=== PATIENT | male | born 1935 | race Caucasian/White ===

== ENCOUNTER → 2018-03-02 | Outpatient (CLI) | payer OTHER ==
[~2018-03-02] MED LIST: NOHOMEMEDICATIONS; NOLVADEX 10MG T10 M1 PO; PREVAGEN; TOBRAMYCIN SULFA5 ML OP
== END ==
LOC: M.ULTRA 09:57
DX: N62 Hypertrophy of breast (principal); Z90.49 Acquired absence of other specified parts of digestive tract

== ENCOUNTER → 2018-03-17 | Outpatient (CLI) | payer OTHER ==
[~2018-03-17] MED LIST changes: -NOLVADEX 10MG T10 M1 PO; -PREVAGEN
[2018-03-17 14:01] LABS: CREATININE 1.1 mg/dL (0.6-1.3)
== END ==
LOC: M.LAB 13:18 → M.MRI 14:30
PROVIDERS: Registered Nurse Diabetes Educator
DX: N64.4 Mastodynia (principal)

== ENCOUNTER 2018-05-05 16:52 | Inpatient (IN) | payer OTHER ==
[~2018-05-05] VITALS: Ht 172.7 cm; Wt 70.7 kg
--- NOTE | ~2018-05-05 | H ---
[address] [address] HISTORY AND PHYSICAL Name: DEVIN PÉREZ Room: [address] [place] .R.#: [id number] Admission: 05/05/18 Attend Phys: Justin Roberts MD Discharge: 05/05/18 Date of : 31 Report #: [id number] THIS REPORT FOR: //name// Patient was here less than 24 hour please refer to the final summation note. Patient Left AMA. By: 1401Medical Records Staff OSMEL /ANN-MARIE
[2018-05-05 17:05] VITALS: BP 141/75
[2018-05-05] MEDS ORDERED: PREVAGEN (17:11)
[2018-05-05] MEDS ORDERED: NOLVADEX 10MG T10 M1 PO (17:11)
[2018-05-05 18:13] LABS: CALCIUM 9.8 mg/dL (8.5-10.1); POTASSIUM 4.7 mmol/L (3.5-5.1)
[2018-05-05 18:14] LABS: ABSOLUTE EOSINOPHILS 0.1 thou/uL (0.0-0.7); ABSOLUTE LYMPHOCYTES 1.9 thou/uL (0.8-5.3); ABSOLUTE MONOCYTES 0.7 thou/uL (0.0-1.2); ABSOLUTE NEUTROPHILS 4.1 thou/uL (1.6-8.1); BASOPHILS 0.5 %; EOSINOPHILS 1.9 %; HEMATOCRIT 51.4 % (42.0-52.0); HEMOGLOBIN 17.1 gm/dL (14.0-18.0); LYMPHOCYTES 27.8 %; MCH 31.8 pg (26.0-34.0); MCHC 33.4 g/dL (28.0-37.0); MCV 95.2 fL (80.0-100.0); MONOCYTES 10.9 %; MPV 10.6 fl. (7.2-11.1); NUCLEATED RBCS 0 /100WBC; PLATELET COUNT* 221 thou/uL (150-400); POLYS 58.9 %; RDW-CV 13.7 % (10.5-14.5); WBC 6.9 thou/uL (4.0-11.0)
[2018-05-05 18:18] LABS: ALBUMIN 3.2 g/dL (3.4-5.0); TOTAL BILIRUBIN 0.4 mg/dL (<0.1-1.0); TOTAL PROTEIN 6.8 g/dL (6.4-8.2)
[2018-05-05 18:53] LABS: URINE BILIRUBIN NEGATIVE (Negative); URINE BLOOD NEGATIVE (Negative); URINE CLARITY CLEAR; URINE COLOR YELLOW; URINE GLUCOSE-RANDOM 3+ (Negative); URINE KETONES NEGATIVE (Negative); URINE LEUKOCYTES-REFLEX NEGATIVE (Negative); URINE NITRITE-REFLEX NEGATIVE (Negative); URINE PROTEIN TRACE (Negative); URINE SPECIFIC GRAVITY 1.025 (1.005-1.030); URINE UROBILINOGEN 0.2 E.U./dl (0.2-1.0)
[2018-05-05 21:10] VITALS: BP 154/76
[2018-05-05 21:20] VITALS: BP 146/69
== END 2018-05-05 22:55 | disposition left against medical advice (07) | DRG 64 ==
LOC: M.ERS 16:52 → M.TBA-ER 20:12 → M.2W 21:03
PROVIDERS: Personal Emergency Response Attendant; ADMIT Family Medicine
DX: I63.9 Cerebral infarction, unspecified (principal); G93.6 Cerebral edema; F03.90 Unspecified dementia, unspecified severity, without behavioral disturbance, psychotic disturbance, mood disturbance, and anxiety; Z90.49 Acquired absence of other specified parts of digestive tract

== ENCOUNTER → 2018-08-16 | Outpatient (CLI) | payer OTHER ==
[~2018-08-16] MED LIST changes: +NOLVADEX 10MG T10 M1 PO; +PREVAGEN
== END ==
LOC: M.ULTRA 13:49
DX: E83.52 Hypercalcemia (principal)

== ENCOUNTER 2018-09-03 10:08 | Emergency (ER) | payer OTHER ==
[~2018-09-03] VITALS: Ht 172.7 cm; Wt 68.0 kg
[2018-09-03] MEDS ORDERED: SERTRALINE HCL50 MG PO (10:24)
[2018-09-03] MEDS ORDERED: ARICEPT 5 MG TAB5 MG PO (10:25)
[2018-09-03] MEDS ORDERED: VITAMIN D5000 UNIT PO ×2 (10:25)
[2018-09-03 11:04] LABS: ABSOLUTE BASOPHILS 0.1 thou/uL (0.0-0.2); ABSOLUTE EOSINOPHILS 0.1 thou/uL (0.0-0.7); ABSOLUTE LYMPHOCYTES 1.8 thou/uL (0.8-5.3); ABSOLUTE MONOCYTES 0.9 thou/uL (0.0-1.2); ABSOLUTE NEUTROPHILS 4.1 thou/uL (1.6-8.1); BASOPHILS 0.8 %; EOSINOPHILS 1.8 %; HEMATOCRIT 47.6 % (42.0-52.0); HEMOGLOBIN 16.2 gm/dL (14.0-18.0); LYMPHOCYTES 26.1 %; MCH 32.1 pg (26.0-34.0); MCHC 34.1 g/dL (28.0-37.0); MCV 94.2 fL (80.0-100.0); MONOCYTES 12.3 %; MPV 9.7 fl. (7.2-11.1); NUCLEATED RBCS 0 /100WBC; PLATELET COUNT* 209 thou/uL (150-400); RBC 5.05 mil/uL (4.50-6.00); RDW-CV 13.4 % (10.5-14.5)
[2018-09-03 11:12] LABS: INR 1.1; PROTIME 10.8 Seconds (9.20-11.50)
[2018-09-03 11:24] LABS: ANION GAP 7 mmol/L (7-16); BUN 18 mg/dL (7-18); CALCIUM 10.2 mg/dL (8.5-10.1); CHLORIDE 108 mmol/L (98-107); CO2 31 mmol/L (21-32); GLUCOSE 148 mg/dL (70-99); POTASSIUM 3.8 mmol/L (3.5-5.1); SODIUM 146 mmol/L (136-145); TROPONIN-I LEVEL <0.06 ng/mL (<0.06)
[2018-09-03 11:25] LABS: ALBUMIN 3.2 g/dL (3.4-5.0); ALKALINE PHOSPHATASE 58 U/L (46-116); LIPASE 108 U/L (73-393); NT-PRO BRAIN NAT PEPTIDE 864 pg/mL (<300); SGOT 28 U/L (15-37); SGPT 63 U/L (30-65); TOTAL BILIRUBIN 0.5 mg/dL (<0.1-1.0); TOTAL PROTEIN 6.6 g/dL (6.4-8.2)
[2018-09-03 13:54] LABS: URINE BILIRUBIN NEGATIVE (Negative); URINE BLOOD NEGATIVE (Negative); URINE CLARITY CLEAR; URINE COLOR YELLOW; URINE GLUCOSE-RANDOM NEGATIVE (Negative); URINE KETONES TRACE (Negative); URINE LEUKOCYTES-REFLEX NEGATIVE (Negative); URINE NITRITE-REFLEX NEGATIVE (Negative); URINE PROTEIN 1+ (Negative); URINE SPECIFIC GRAVITY >= 1.030 (1.005-1.030)
[2018-09-03 15:43] VITALS: BP 142/56
--- NOTE | 2018-09-03 15:43 | NUR ---
CALLED BY ER TO SEE PT.AND . PT.HAS DEMENTIA THAT HAS EXTREMELY GOTTEN WORSE IN THE PAST 3 WEEKS. DOES NOT WANT TO PLACE HIM IN A NH BUT HAS NO HELP AT HOME. THEY ARE NOT ADMITTING HIM. PT.COULD STATE HIS NAME. TEARFUL. THEY DO NOT HAVE ANY CHILDREN OR RELATIVES CLOSE BY. HAVE ONE CLOSE FRIEND-PRISCILLA. PT.WANDERS AT NIGHT IN HOUSE. WON'T SLEEP,WONT WATCH TV ANYMORE. WON'T EAT OR DRINK MUCH. SHE SAID SHE HAS BOUGHT LITTLE KID TOYS AND ALL HE DOES IS SIT AT THE TABLE AND PLAY WITH THEM. DISCUSSED HOSPICE. GAVE HER CARE NOTE PAMPHLET ABOUT HOSPICE,SR.HEALTH BOOKLET. SHE DID NOT KNOW WHETHER SHE WANTED HOSPICE,. FINALLY SHE SAID SHE WOULD LISTEN TO WHAT THEY HAVE TO SAY. DID NOT WANT TO MEET WITH THEM HERE. WANTED TO GET PT.HOME AND SETTLED. SHE SAID THEY HAVE ABOUT 10 STAIRS TO GET UP. HER FRIEND IS SUPPOSED TO HELP THEM. TOLD HER ABOUT [facility]-TO CALL 911 AND TELL THEM IT IS NOT AN EMERGENCY BUT NEED HELP GETTING UPSTAIRS. CALLED [facility]. FAXED FACE SHEET TO [phone]. HE WILL CALL TO SET UP AN APPT.NANCY TO SEE THEM AT HOME.
--- NOTE | 2018-09-03 16:33 | EKG ---
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
== END 2018-09-03 15:43 | disposition home or self-care (01) ==
LOC: M.ERS 10:08
PROVIDERS: Emergency Medicine
DX: F03.90 Unspecified dementia, unspecified severity, without behavioral disturbance, psychotic disturbance, mood disturbance, and anxiety (principal); R41.82 Altered mental status, unspecified; Z88.8 Allergy status to other drugs, medicaments and biological substances; Z90.49 Acquired absence of other specified parts of digestive tract; Z86.73 Personal history of transient ischemic attack (TIA), and cerebral infarction without residual deficits